=== PATIENT | male | born 1975 | race Caucasian/White ===

== ENCOUNTER 2020-08-07 15:19 | Emergency (ER) | payer OTHER ==
[~2020-08-07] VITALS: Ht 180.3 cm; Wt 88.0 kg
[2020-08-07 15:24] VITALS: Ht 180.3 cm; Wt 88.0 kg
[2020-08-07 16:00] LABS: PLATELET COUNT 192 x10^3mcL (152-348); RED CELL DISTRIBUTION WIDTH 12.2 % (12.1-16.2)
[2020-08-07 16:04] LABS: BASOPHIL % 2.3 % (0.2-1.5)
[2020-08-07 16:19] LABS: CALCIUM 9.3 mg/dL (8.5-10.1); CARBON DIOXIDE 29.9 mmol/L (21-32); CHLORIDE SERUM 97 mmol/L (98-107); CREATININE SERUM 0.9 mg/dL (0.7-1.3); GFR1 > 60 mL/min; GLUCOSE SERUM 181 mg/dL (74-106); POTASSIUM SERUM 4.3 mmol/L (3.5-5.1); SODIUM SERUM 135 mmol/L (136-145)
[2020-08-07 16:24] LABS: ALBUMIN 4.1 g/dL (3.4-5.0); ALKALINE PHOSPHATASE 59 U/L (46-116); ALT/SGPT 58 U/L (16-63); AST/SGOT 25 U/L (15-37); BILIRUBIN TOTAL 0.3 mg/dL (0.20-1.00); LIPASE 152 IU/L (73-393); TOTAL PROTEIN, SERUM 7.6 g/dL (6.4-8.2)
[2020-08-07] MEDS ORDERED: IBU600 M2 PO (17:40)
[2020-08-07 17:54] VITALS: BP 107/79
== END 2020-08-07 17:54 | disposition home or self-care (01) ==
LOC: ED 15:19
PROVIDERS: Emergency Medicine
DX: N50.812 Left testicular pain (principal); I10 Essential (primary) hypertension; E11.9 Type 2 diabetes mellitus without complications; Z88.0 Allergy status to penicillin
CPT/HCPCS: J1885; J2405; J7030